=== PATIENT | female | born 1960 | race Hispanic/Latino ===

== ENCOUNTER → 2017-05-28 | Day surgery (SDC) | payer MEDICARE ==
[2017-05-25 13:25] LABS: BASOPHILS # (AUTO) 0.1 (0.0-0.1); BASOPHILS % 0.6 % (0.0-1.0); EOSINOPHILS # (AUTO) 0.3 (0.0-0.4); EOSINOPHILS % 2.6 % (0.0-6.0); HEMATOCRIT 35.7 % (34.2-44.1); HEMOGLOBIN 11.9 g/dL (12.0-16.0); LYMPHOCYTES # (AUTO) 3.6 (1.0-3.2); LYMPHOCYTES % 28.9 % (18.0-39.1); MEAN CORPUSCULAR HEMOGLOBIN 30.4 pg (28-32); MEAN CORPUSCULAR HGB CONC 33.3 g/dL (31-35); MEAN CORPUSCULAR VOLUME 91.3 fL (81-99); MONOCYTES # (AUTO) 0.9 (0.2-0.8); MONOCYTES % 6.8 % (4.4-11.3); NEUTROPHILS # (AUTO) 7.6 (2.1-6.9); NEUTROPHILS % 60.8 % (38.7-80.0); PLATELET COUNT 293 x10e3/uL (140-360); RED BLOOD COUNT 3.91 x10e6/uL (3.6-5.1); RED CELL DISTRIBUTION WIDTH 13.8 % (11.7-14.4)
[2017-05-25 13:45] LABS: ALBUMIN 3.6 g/dL (3.5-5.0); ALBUMIN/GLOBULIN RATIO 0.8 (0.8-2.0); ANION GAP 15.5 mmol/L (8-16); CALCIUM 10.1 mg/dL (8.4-10.2); CREATININE, SERUM 1.82 mg/dL (0.57-1.11); POTASSIUM 4.5 mmol/L (3.5-5.1)
[~2017-05-28] MED LIST: AMARYL2 MG PO; AMOX TR-K CLV1 EAC2 PO; ASPIR 8181 MG PO; ATORVASTATIN CA20 MG PO; BUPIVACAINE HCL 0.5% INJ 30 ML VIAL INJ ONE; CEFAZOLIN SOD 1 GM/NS 50ML 50 ML IV ONE; CIPRO500 MG PO; FENOFIBRATE145 MG PO; FENTANYL CITRATE/PF 100MCG/2 ML INJ ONE; GABAPENTIN300 MG PO; GLYCOPYRROLATE INJ 1MG/ 5 ML SYR ONE; IRON PO; LIDOCAINE HCL 2% LOCAL INJ 5 ML SDV VIAL INJ ONE; METFORMIN HCL500 MG PO; MIDAZOLAM HCL 2 MG/2 ML VIAL ONE; MULTIVITAMINS1 EAC7 PO; NEOSTIGMINE 5 MG/5ML SYR ONE; ONDANSETRON HCL INJ 2 MG/ML VIAL ONE; PHENYLEPHRINE HCL 1% 10 MG/ML VIAL ONE; PROBIOTIC & AC1 EACH PO; PROPOFOL IV EMULSION 10 MG/ML 20 ML VIAL ONE; ROCURONIUM BROMIDE 10 MG/ML 5ML VIAL ONE; SEVOFLURANE INHAL SOLN 250 ML PEN BTL ONE; VITAMIN D2000 UNI1 PO
--- NOTE | 2017-05-28 08:18 | Operative Report ---
DATE OF PROCEDURE: May 28, 2017 PREOPERATIVE DIAGNOSIS: Chronic cholecystitis and cholelithiasis. POSTOPERATIVE DIAGNOSIS: Chronic cholecystitis and cholelithiasis. PROCEDURE: Diagnostic laparoscopy. Laparoscopic cholecystectomy. NURSING PROFESSOR: None. ANESTHESIA: General. INDICATIONS AND FINDINGS: Patient is a 56-year-old female who has had complaints of severe right upper quadrant abdominal pain. Workup revealed gallstones with sludge in the gallbladder. At surgery, the patient had gallbladder adhesions involving the omentum and duodenum over the neck and fundus of the gallbladder. Gallbladder contained multiple sand-like stones. Cystic duct was about 3 mm in diameter. Common bile duct was about 5 mm in diameter. Liver, stomach, and lower abdomen all appeared normal. TECHNIQUE: After adequate general endotracheal anesthesia, with the patient in the supine position, the abdomen was prepped and draped in a sterile fashion with Shaun solution. Skin of the umbilicus was infiltrated with 0.5% Marcaine. Incision was made in the umbilicus. Abdominal wall was elevated, and a Veress needle was introduced. Pneumoperitoneum was then created. A 10-mm trocar and cannula were then passed through the umbilical wound. Laparoscopic camera was introduced. Initial laparoscopy revealed liver, stomach, and lower abdomen all appeared normal. A 10-mm trocar and cannula were placed in the epigastrium, and two 5-mm trocars and cannulas were placed in the right upper quadrant. These were placed under direct vision. Fundus of the gallbladder was grasped and retracted superiorly. There were adhesions over the neck and fundus of the gallbladder involving omentum and duodenum. These were lysed, staying close to the gallbladder. Peritoneum over the neck of the gallbladder was incised. The gallbladder-cystic duct junction was dissected free. Cystic artery was also dissected free. The neck of the gallbladder was completely dissected free. Cystic artery was divided between Hemoclips close to the gallbladder. Cystic duct was milked back towards the gallbladder and then divided between Hemoclips with 3 clips being left on the common bile duct side. There was a posterior branch of the cystic artery which was also divided between Hemoclips close to the gallbladder. The gallbladder was dissected free from the liver using scissors and electrocautery. Once it was entirely free, it was placed into an Endo pouch and brought out through the epigastric cannula. It contained sand-like stones. Gallbladder bed was inspected for hemostasis, which was seen to be adequate. It was irrigated with saline. All fluid aspirated and inspected for hemostasis, which was seen to be adequate. Instruments and cannulas were then removed. Pneumoperitoneum was evacuated. Wounds were then closed. Fascia in the umbilical and epigastric wound closed with #0 Vicryl. Skin to all wounds closed with 4-0 Vicryl in subcuticular fashion. Dermabond and sterile dressing were applied. The patient tolerated the procedure well. Estimated blood loss was 10 mL. There were no complications. All counts were correct. Patient was taken to the recovery room in satisfactory condition. Job#: [id number] cc:ADRIANE VANG MD
== END | disposition home or self-care (01) ==
LOC: OR 06:38
PROVIDERS: ATTEND Surgery
DX: K80.10 Calculus of gallbladder with chronic cholecystitis without obstruction (principal); K82.8 Other specified diseases of gallbladder; K21.9 Gastro-esophageal reflux disease without esophagitis; E11.9 Type 2 diabetes mellitus without complications; K75.9 Inflammatory liver disease, unspecified; N15.1 Renal and perinephric abscess; I25.2 Old myocardial infarction; F17.210 Nicotine dependence, cigarettes, uncomplicated; Z01.810 Encounter for preprocedural cardiovascular examination; Z01.812 Encounter for preprocedural laboratory examination; Z79.82 Long term (current) use of aspirin
CPT/HCPCS: 36415 ×2; 47562; 80053; 82948; 85025; 88304; 93005; J2001; J2250; J2370; J2405